=== PATIENT | female | born 1950 | race Caucasian/White ===

== ENCOUNTER 2020-05-30 11:01 | Emergency (ER) | payer OTHER, SELFPAY ==
--- NOTE | ~2020-05-30 | XR_ITS ---
EXAMINATION: XR chest 2V EXAM DATE: 05/30/2020 11:49 INDICATION: Shortness of breath. TECHNIQUE: Frontal and lateral projections of the chest obtained and reviewed. There is no prior kiran dy for comparison. FINDINGS: Moderate chronic appearing hyperinflation. The lungs are clear. There are no pleural effu sions. The cardiomediastinal silhouette is within normal limits. There is no pneumothorax suspected . There are bony degenerative changes. There are cholecystectomy clips. IMPRESSION: 1. No acute cardiopulmonary findings. 2. Hyperinflation. Reviewed, dictated and finalized at location A.
[2020-05-30 11:15] VITALS: BP 149/82; PULSE 86; RESP 20; TEMP 36.3; O2SAT 98
--- NOTE | 2020-05-30 11:16 | ED.GENADULT ---
HPI - General Adult General Chief complaint: Upper Respiratory Infection Stated complaint: LIGHT HEADED/WEAK Time Seen by Provider: 05/30/20 11:16 Source: patient and RN notes reviewed Mode of arrival: ambulatory Limitations: no limitations History of Present Illness HPI narrative: 69-year-old female presents with complaints of nausea, weakness, and shortness of breath for the past 2 months. Two rounds of antibiotics (Azithromycin for Bronchitis and Keflex for infected Dermatitis) with some relief. Had an episode of dizziness 5 days ago in which she fell and hit the right side of head no loss of consciousness. No dizziness or headache at this time. No treatment. No exacerbating factors or relieving factors. Denies ear pain, ear itching, ear trauma, altered vision, altered speech, confusion, or seizure activity. Denies headache, numbness or tingling in extremities. Denies chest pain or dyspnea. Denies URI symptoms, fever, or chills. Tolerating p.o. intake well. Remains active. The patient reports she have not been diagnosed with COVID-19. Last COVID-19 test was 03/30/20 with NEGATIVE RESULT. The patient reports she is not waiting for the results of a COVID-19 lab test. The patient reports she do not have fever, chills, or fatigue. The patient reports she do not have a new or worsening cough or shortness of breath. Denies chest pain. The patient reports she do not have any rhinorrhea, congestion, sore throat, nausea, vomiting, abdominal pain, and diarrhea. Denies recent traveling. Denies concerns for COVID-19 or exposures been home with limited outdoor exposure except for essential household needs and return home. At this time, patient is not suspected of having COVID-19. Some parts of this dictation were generated by voice recognition software and may contain typographical and/or grammatical inaccuracies. Related Data Home Medications Medication Instructions Recorded Confirmed furosemide 20 mg DAILY 05/30/20 05/30/20 potassium chloride 10 meq DAILY 05/30/20 05/30/20 Allergies Allergy/AdvReac Type Severity Reaction Status Date / Time Iodinated Contrast Media Allergy Unknown Verified 07/24/18 11:02 Opioids - Morphine Analogues Allergy Unknown Verified 07/24/18 11:02 CONTRAST DYE Allergy Unknown Uncoded 10/25/16 21:25 OPIATES Allergy Unknown Uncoded 10/25/16 21:25 Review of Systems Review of Systems: Narrative: CONSTITUTIONAL: Denies fever, chills, sweats. EYES: Denies visual changes, redness, discharge. ENT: Denies rhinorrhea, congestion, sore throat, otalgia. CARDIOVASCULAR: Denies chest pain, palpitations, edema. RESPIRATORY: Denies dyspnea, wheezing, cough. Complaints of shortness of breath. GASTROINTESTINAL: Denies abdominal pain, vomiting, diarrhea. Complains of nausea. GENITOURINARY: Denies dysuria, hematuria, abnormal discharge. SKIN: Denies lesions, itching, drainage. MUSCULOSKELETAL: Denies acute back pain, joint pain, or myalgia. NEUROLOGIC: Denies numbness or focal weakness. Complains of weakness. PSYCHIATRIC: Denies anxiety or depression. All systems reviewed & are unremarkable except as noted in HPI and below. [facility] Past Medical History Medical History (Updated 05/31/20 @ 00:00 by Kemal Maradiaga) Antiphospholipid antibody syndrome Arthritis Edema Surgical History Surgical History (Updated 05/30/20 @ 11:37 by KAUSHIK Thompson) History of cholecystectomy History of hysterectomy History of tonsillectomy Hx of appendectomy Family History Family History (Updated 05/30/20 @ 11:38 by KAUSHIK Thompson) Father , age 90, Parkinson's Disease from age 60-90 Parkinson disease Mother , at 100, received a Pacemaker in her early 90's No problems noted. Social History Social History (Updated 05/30/20 @ 11:39 by KAUSHIK Thompson) Smoking status: Never smoker Second hand tobacco smoke exposure: No Alcohol intake: current Substance u
--- NOTE | 2020-05-30 11:22 | PC.NURSE ---
spoke with Jasmina Mcguire nurse. Stated that she had advised the patient to go the Er but she refused
--- NOTE | 2020-05-30 11:28 | ECG_ITS ---
Measurements Intervals [place] Rate: 80 P: 58 NM: 134 QRS: 84 QRSD: 72 T: 15 QT: 369 QTc: 427 Interpretive Statements SINUS RHYTHM CANNOT RULE OUT SEPTAL INFARCT, AGE INDETERMINATE BORDERLINE ST ABNORMALITY- INF/LAT LEADS BORDERLINE ECG Electronically Signed On 05-30-2020 11:43:32 CDT by Jasbir Cunha D.O.
[2020-05-30 11:49] VITALS: BP 135/68; PULSE 79
[2020-05-30 11:50] VITALS: BP 113/62; BP 134/73; PULSE 84
--- NOTE | 2020-05-30 12:17 | PC.NURSE ---
Keyshawn OCONNOR spoke at length with patient about transfer to the ER for additional testing. Ptient refuses to go to the ER. Keyshawn OCONNOR had patient vanessa reusal for transfer
== END 2020-05-30 12:22 | disposition home or self-care (01) ==
PROVIDERS: Emergency Provider Nurse Practitioner Family; PCP Emergency Medicine
DX: R53.1 Weakness (principal); R91.8 Other nonspecific abnormal finding of lung field; I95.1 Orthostatic hypotension; D68.61 Antiphospholipid syndrome; M19.90 Unspecified osteoarthritis, unspecified site
CPT/HCPCS: 71046; 93005; 99213; G0463

== ENCOUNTER 2021-01-27 12:06 | Outpatient (CLI) | payer OTHER, SELFPAY ==
--- NOTE | ~2021-01-27 | XR_ITS ---
EXAMINATION: XR foot LT standing 2V, XR foot RT standing 2V DATE: 01/27/2021 12:35 INDICATION: Systemic involvement of connective tissues. TECHNIQUE: 1. Weight bearing dorsal plantar and lateral views of the left foot were obtained. 2. Weight bearing dorsal plantar and lateral views of the right foot were obtained. COMPARISON: None. FINDINGS: Bilateral mild pes planus with mild flattening of the longitudinal arch. No fractures. Severe osteoar thritis at the left first metatarsophalangeal joint. Remaining joint spaces in both feet appear relat ively preserved. Soft tissue swelling over the dorsum of both forefeet. IMPRESSION: 1. 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 2. Mild bilateral pes planus. Reviewed, dictated and finalized at location B. IMPRESSION: 1. 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 2. Mild bilateral pes planus.
--- NOTE | ~2021-01-27 | XR_ITS ---
EXAMINATION: HAND-DONALD ARTHRITIS 3+VIEWS DATE: 01/27/2021 12:35 INDICATION: Systemic involvement of connective tissues TECHNIQUE: Posteroanterior, lateral, and oblique views of the left and of the right hands as well as a ballcatchers view of both hands were obtained. COMPARISON: None. FINDINGS: Normal alignment at the bilateral hands. No fractures. Minimal osteoarthritis characterized by minima l nonuniform joint space narrowing and/or tiny marginal osteophytes at several bilateral metacarpopha langeal and interphalangeal joints. No erosions to suggest an inflammatory arthritis. Soft tissues ar e unremarkable. IMPRESSION: 1. Minimal polyarticular osteoarthritis at several bilateral metacarpophalangeal and interphalangeal joints. Reviewed, dictated and finalized at location B. IMPRESSION: 1. Minimal polyarticular osteoarthritis at several bilateral metacarpophalangea l and interphalangeal joints.
== END 2021-01-27 12:07 | disposition home or self-care (01) ==
LOC: ANHIMG 12:13
PROVIDERS: PCP Emergency Medicine; Visit Provider Internal Medicine
DX: M35.9 Systemic involvement of connective tissue, unspecified (principal); D68.61 Antiphospholipid syndrome; M19.072 Primary osteoarthritis, left ankle and foot; M21.42 Flat foot [pes planus] (acquired), left foot; M21.41 Flat foot [pes planus] (acquired), right foot
CPT/HCPCS: 73130; 73620

== ENCOUNTER → 2022-11-19 09:31 | Outpatient (CLI) | payer OTHER, SELFPAY ==
--- NOTE | ~2022-11-19 | MR_ITS ---
EXAMINATION: MR brain IAC wo/w con DATE: 11/19/2022 10:48 INDICATION: Left-sided hearing loss. TECHNIQUE: Magnetic resonance imaging (MRI) of the brain, brainstem, and internal auditory canals was performed without and with 14 mL MultiHance intravenous contrast. COMPARISON: None. FINDINGS: There are scattered areas of nonspecific increased T2-weighted signal intensity in the cere bral white matter, which is within normal limits for the patient's age. There is no intracranial hemo rrhage, acute infarction, or abnormal intracranial mass lesion. The ventricles are normal in size. Th ere is mild mucosal thickening in the ethmoid sinuses. The orbits are normal. The internal auditory c anals and inner and middle ears are normal. The mastoid air cells are normal. IMPRESSION: 1. Normal brain. Reviewed, dictated and finalized at location A. CONDUCTOR IMPRESSION: 1. Normal brain.
== END ==
PROVIDERS: PCP Internal Medicine; Visit Provider Otolaryngology
DX: H91.8X2 Other specified hearing loss, left ear (principal)
CPT/HCPCS: 70553; A9577